=== PATIENT | female | born 1985 | race Caucasian/White ===

== ENCOUNTER 2016-09-28 21:07 | Emergency (ER) | payer OTHER ==
[2016-09-28 21:34] VITALS: TEMP 98.2; BMI 28.3
[2016-09-28] MEDS ORDERED: MAG HYDROX/AL HYDROX/SIMETH 30 ML UNIT-DOSE CUP PO ONE (23:06)
--- NOTE | 2016-09-28 23:06 | PDOC ---
History of Present Illness - General History Source: Patient Exam Limitations: No Limitations - History of Present Illness Initial Comments: 09/28/16 23:18 Patient is a 31 year old female with no pmhx who presents to the ED with epigastric pain for 7 hours. She denies any radiation of the pain. Patient states that she took 400 mg of advil and tums which made the pain that has progressively worsened so she took omeprazole with no relief. She reports intermittent nausea, but denies any vomiting or diarrhea. She reports generalized weakness. LMP: currently PSH: cholecystectomy, tonsillectomy, C section SH: non smoker, no alcohol or drug use. ALL: NKA <Shakira De Paz - Last Filed: 09/28/16 23:18> <Mariann Smith - Last Filed: 09/29/16 01:12> - General Chief Complaint: Pain Stated Complaint: STOMACH PAIN,WEAKNESS Time Seen by Provider: 09/28/16 22:23 Past History <Shakira De Paz - Last Filed: 09/28/16 23:18> - Surgical History Cholecystectomy: Yes - Psycho/Social/Smoking Cessation Hx Anxiety: No Suicidal Ideation: No Smoking History: Never smoked Have you smoked in the past 12 months: No Information on smoking cessation initiated: No Hx Alcohol Use: No Drug/Substance Use Hx: No Substance Use Type: None <Mariann Smith - Last Filed: 09/29/16 01:12> - Past Medical History Allergies/Adverse Reactions: Allergies Allergy/AdvReac Type Severity Reaction Status Date / Time No Known Allergies Allergy Verified 09/28/16 21:34 Home Medications: Ambulatory Orders NK [No Known Home Medication] 09/28/16 Review of Systems - Review of Systems Able to Perform ROS?: Yes Comments:: 09/28/16 23:18 CONSTITUTIONAL: Present: generalized weakness Absent: fever, chills, diaphoresis, malaise, loss of appetite HEENT: Absent: rhinorrhea, nasal congestion, throat pain, throat swelling, difficulty swallowing, mouth swelling, ear pain, eye pain, visual Changes CARDIOVASCULAR: Absent: chest pain, syncope, palpitations, irregular heart rate, lightheadedness , peripheral edema RESPIRATORY: Absent: cough, shortness of breath, dyspnea with exertion, orthopnea, wheezing, stridor, hemoptysis GASTROINTESTINAL: Present: abdominal pain, nausea Absent:abdominal distension, vomiting, diarrhea, constipation, melena, hematochezia GENITOURINARY: Absent: dysuria, frequency, urgency, hesitancy, hematuria, flank pain, genital pain MUSCULOSKELETAL: Absent: myalgia, arthralgia, joint swelling SKIN: Absent: rash, itching, pallor HEMATOLOGIC/IMMUNOLOGIC: Absent: easy bleeding, easy bruising, lymphadenopathy, frequent infections ENDOCRINE: Absent: unexplained weight gain, unexplained weight loss, heat intolerance, cold intolerance NEUROLOGIC: Absent: headache, focal weakness or paresthesias, dizziness, unsteady gait, seizure, mental status changes, bladder or bowel incontinence PSYCHIATRIC: Absent: anxiety, depression, suicidal or homicidal ideation, hallucinations. <Shakira De Paz - Last Filed: 09/28/16 23:18> *Physical Exam - Vital Signs Last Vital Signs Temp Pulse Resp BP Pulse Ox 98.2 F 76 18 115/71 100 09/28/16 21:31 09/28/16 21:31 09/28/16 21:31 09/28/16 21:31 09/28/16 21:31 - Physical Exam Comments: 09/28/16 23:19 GENERAL: Well developed, well nourished. Awake and alert. No acute distress. HEENT: Normocephalic, atraumatic. PERRLA, EOMI. No conjunctival pallor. Sclera are non- icteric. Moist mucous membranes. Oropharynx is clear. NECK: Supple. Full ROM. No JVD. Carotid pulses 2+ and symmetric, without bruits. No thyromegaly. No lymphadenopathy. CARDIOVASCULAR: Regular rate and rhythm. No murmurs, rubs, or gallops. Distal pulses are 2+ and symmetric. PULMONARY: No evidence of respiratory distress. Lungs clear to auscultation bilaterally. No wheezing, rales or rhonchi. ABDOMINAL: +Epigastric discomfort. Soft.bNon-distended. No rebound or guarding. No organomegaly. Normoactive bowel sounds. MUSCULOSKELETAL Normal range of motion at all joints. No bony deformities or tenderness. No CVA tenderness. EXTREMITIES: No cyanosis. No clubbing. No edema. No calf tenderness. SKIN: Warm and dry. Normal capillary refill. No rashes. No jaundice. NEUROLOGICAL: Alert, awake, appropriate. Cranial nerves 2-12 intact. No deficits to light touch and temperature in face, upper extremities and lower extremities. No motor deficits in the in face, upper extremities and lower extremities. Normoreflexic in the upper and lower extremities. Normal speech. PSYCHIATRIC: Cooperative. Good eye contact. Appropriate mood and affect. <Shakira De Paz - Last Filed: 09/28/16 23:18> - Vital Signs Last Vital Signs Temp Pulse Resp BP Pulse Ox 98.2 F 76 18 115/71 100 09/28/16 21:31 09/28/16 21:31 09/28/16 21:31 09/28/16 21:31 09/28/16 21:31 <Mariann Smith - Last Filed: 09/29/16 01:12> ED Treatment Course - LABORATORY CBC & Chemistry Diagram: 09/28/16 23:22 09/28/16 23:22 <Mariann Smith - Last Filed: 09/29/16 01:12> Medical Decision Making - Medical Decision Making 09/29/16 01:06 31-year-old female has stayed away since this afternoon's started to have severe epigastric pain. She has some with nausea but did not vomit. She has had a cholecystectomy and in the past. On physical exam she had some minor epigastric discomfort, but her abdomen was soft. There was no rebound, guarding or tenderness. She definitely did not have any right lower quadrant pain. Patient received antibiotics, fluids and given antacids and her symptoms resolved In reviewing her labs and was found. She did have a leukocytosis and 80% neutrophils. Patient 's abdomen was reassessed and it was still very soft with no focal abdominal pain. Patient requests to go home. I discussed with her CBC and that she had a WBC of 14,000. She may have a very atypical presentation of a very early appendicitis and this was discussed with her. She was told to return to the emergency department in the next 24 hours if her symptoms recur to have further eval and ct scan <Mariann Smith - Last Filed: 09/29/16 01:12> *DC/Admit/Observation/Transfer - Attestations Scribe Attestion: 09/28/16 23:19 Documentation prepared by MARBELLA Haro, acting as medical officer for Mariann Smith MD. <Shakira De Paz - Last Filed: 09/28/16 23:18> <Mariann Smith - Last Filed: 09/29/16 01:12> Diagnosis at time of Disposition: Epigastric pain - Discharge Dispostion Disposition: HOME Condition at time of disposition: Stable - Referrals Referrals: Charles Boyd [Primary Care Provider] - - Patient Instructions Printed Discharge Instructions: DI for Epigastric Pain Additional Instructions: If you have any further abdominal pain or nausea or vomiting, please return to the emergency department for a CT SCAN to rule out appendicitis
[2016-09-28] MEDS ORDERED: FAMOTIDINE 20 MG/50 ML IVPB 50 ML IVPB ONE ×2 (23:08→23:16)
[2016-09-28] MEDS ORDERED: ONDANSETRON 4 MG/2 ML VIAL IVPUSH ONE (23:09)
[2016-09-28] MEDS ORDERED: MAG HYDROX/AL HYDROX/SIMETH 30 ML UNIT-DOSE CUP ONE (23:15)
[2016-09-28] MEDS ORDERED: ONDANSETRON 4 MG/2 ML VIAL ONE (23:17)
[2016-09-28 23:40] LABS: BASOPHIL 0.6 % (0-2.0); MCH 28.7 pg (25.7-33.7); NEUTROPHILS 89.9 % (42.8-82.8); PLATELET COUNT 201 K/MM3 (134-434); RDW 13.7 % (11.6-15.6); WHITE BLOOD COUNT 14.2 K/mm3 (4.0-10.0)
[2016-09-29 00:03] LABS: ALBUMIN 4.2 g/dl (3.4-5.0); ANION GAP 9 (8-16); CALCIUM 9.5 mg/dL (8.5-10.1); CO2 27 mmol/L (21-32); CREATININE 0.6 mg/dL (0.55-1.02); GLUCOSE,RANDOM 124 mg/dL (74-106); SGOT/AST 18 U/L (15-37); SGPT/ALT 20 U/L (12-78); TOT PROT 8.1 g/dl (6.4-8.2)
[2016-09-29 00:04] LABS: ALK PHOS 81 U/L (45-117)
[2016-09-29 01:31] VITALS: BP 110/68; PULSE 68
== END 2016-09-29 01:30 | disposition home or self-care (01) ==
LOC: JER 21:07
PROC: 3E033GC Introduction of Other Therapeutic Substance into Peripheral Vein, Percutaneous Approach (ICD-10-PCS; principal; 2016-09-28)
DX: R10.13 Epigastric pain (principal)
CPT/HCPCS: 36415; 80053; 83690; 84703; 85025; 96365; 96375; 99282-25

== ENCOUNTER 2016-10-01 14:06 | Emergency (ER) | payer OTHER ==
[2016-10-01 14:14] VITALS: BP 117/78; PULSE 84; TEMP 97.9; BMI 28.3
[2016-10-01 14:48] LABS: URINE APPEARANCE CLEAR; URINE BILIRUBIN NEGATIVE (NEGATIVE); URINE COLOR YELLOW; URINE GLUCOSE (UA) NEGATIVE (NEGATIVE); URINE KETONE TRACE (NEGATIVE); URINE NITRITE NEGATIVE (NEGATIVE); URINE UROBILINOGEN NEGATIVE mg/dL (0.2-1.0)
--- NOTE | 2016-10-01 15:04 | PDOC ---
History of Present Illness - General Chief Complaint: Pain Stated Complaint: ABD PAIN Time Seen by Provider: 10/01/16 14:18 - History of Present Illness Initial Comments: 10/01/16 14:57 Ms. Hernandez is a 31 yo F with h/o cholycystectomy who presents with abdominal pain. Pt. reports epigastric pain beginning 5 days ago and that subsided and has recurred yesterday. Pain is sharp, and localized. Endorses intrascapular pain, decreased appetite, mild SOB, and nausea. Denies vomiting, fevers/chills, wt.changes, constipation/diarrhea, blood in stool, chest pain, urinary complaints. Reports Ranitidine use with no relief of symptoms. Denies alcohol consumption and maintains adequate fluid hydration. Timing/Duration: unsure Past History - Past Medical History Allergies/Adverse Reactions: Allergies Allergy/AdvReac Type Severity Reaction Status Date / Time No Known Allergies Allergy Verified 10/01/16 14:11 Home Medications: Ambulatory Orders Dicyclomine HCl [Bentyl] 10 mg PO BID PRN #10 capsule 10/01/16 Famotidine [Pepcid -] 40 mg PO DAILY #30 tablet 10/01/16 Other medical history: none - Surgical History Cholecystectomy: Yes - Psycho/Social/Smoking Cessation Hx Anxiety: No Suicidal Ideation: No Smoking History: Never smoked Have you smoked in the past 12 months: No Information on smoking cessation initiated: No Hx Alcohol Use: No Drug/Substance Use Hx: No Substance Use Type: None Review of Systems - Review of Systems Comments:: 10/01/16 15:04 GENERAL/CONSTITUTIONAL: No fever or chills. No weakness. HEAD, EYES, EARS, NOSE AND THROAT: No change in vision. No ear pain or discharge. No sore throat. CARDIOVASCULAR: No chest pain or shortness of breath RESPIRATORY: No cough, wheezing, or hemoptysis. GASTROINTESTINAL: +abdominal pain and nausea, No vomiting, diarrhea or constipation. GENITOURINARY: No dysuria, frequency, or change in urination. MUSCULOSKELETAL: No joint or muscle swelling or pain. No neck or back pain. SKIN: No rash NEUROLOGIC: No headache, vertigo, loss of consciousness, or change in strength/ sensation. ENDOCRINE: No increased thirst. No abnormal weight change HEMATOLOGIC/LYMPHATIC: No anemia, easy bleeding, or history of blood clots. ALLERGIC/IMMUNOLOGIC: No hives or skin allergy. *Physical Exam - Vital Signs Last Vital Signs Temp Pulse Resp BP Pulse Ox 97.9 F 84 18 117/78 100 10/01/16 14:11 10/01/16 14:11 10/01/16 14:11 10/01/16 14:11 10/01/16 14:11 - Physical Exam Comments: 10/01/16 15:05 GENERAL: Awake, alert, and fully oriented, in no acute distress HEAD: No signs of trauma, normocephalic, atraumatic EYES: PERRLA, EOMI, sclera anicteric, conjunctiva clear ENT: Auricles normal inspection, hearing grossly normal, nares patent, oropharynx clear without exudates. Moist mucosa NECK: Normal ROM, supple, no lymphadenopathy, JVD, or masses LUNGS: No distress, speaks full sentences, clear to auscultation bilaterally HEART: Regular rate and rhythm, normal S1 and S2, no murmurs, rubs or gallops, peripheral pulses normal and equal bilaterally. ABDOMEN: Epigastric tenderness to palpation. Soft, normoactive bowel sounds. No guarding, no rebound. No masses. Absent hepatosplenomegaly, Absent rigidity and rebound tenderness. EXTREMITIES: Normal inspection, Normal range of motion, no edema. No clubbing or cyanosis. NEUROLOGICAL: Cranial nerves II through XII grossly intact. Normal speech, normal gait, no focal sensorimotor deficits SKIN: Warm, Dry, normal turgor, no rashes or lesions noted. ED Treatment Course - LABORATORY CBC & Chemistry Diagram: 10/01/16 15:00 10/01/16 15:00 - ADDITIONAL ORDERS Additional order review: Laboratory Results 10/01/16 14:27 Urine HCG, Qual Negative Medical Decision Making - Medical Decision Making 10/01/16 15:08 Ms. Hernandez is a 31 yo F with h/o cholycystectomy, and GERD who presents with abdominal pain. There is low suspicion for cholethiasis or gallbladder pathology d/t cholycystectomy ( 2012 ). Physical exam does not reveal acute abdomen or peritoneal signs. It is unlikely she has mesenteric ischemia. She denies urinary complaints. Low clinical suspicion of pyelonephritis, or cholethiasis. Pt. denies flank and suprapubic pain. Has no CVA tenderness and is hemodynamically stable. Pain most likely 2/2 to PUD vs. acute pancreatitis. ED Course: CBC,CMP, Lipase UA BHCG Abdominal CT 10/01/16 16:35 CBC, CMP, Lipase unremarkable 10/01/16 18:15 Bismuth Subsalicylate Mag hydrox/ Al hydrox 10/04/16 15:[address] abdomen *DC/Admit/Observation/Transfer Diagnosis at time of Disposition: Dyspepsia Epigastric abdominal tenderness Qualifiers: Presence of rebound: absent Qualified Code(s): R10.816 - Epigastric abdominal tenderness - Discharge Dispostion Disposition: HOME Condition at time of disposition: Improved - Prescriptions Prescriptions: Dicyclomine HCl [Bentyl] 10 mg PO BID PRN #10 capsule PRN Reason: abodminal pain Famotidine [Pepcid -] 40 mg PO DAILY #30 tablet - Referrals Referrals: Charles Boyd [Primary Care Provider] - - Patient Instructions Printed Discharge Instructions: DI for Epigastric Pain Additional Instructions: Please return to the ER if you experience worsening symptoms including worsening pain, vomiting, bloody vomit, or blood in your stools. Please follow up with your Primary care provider to discuss your ER visit. - Attestations Physician Attestion: 10/01/16 16:44 I, Dr. Beka Stevens, attest that this document has been prepared under my direction and personally reviewed by me in its entirety. I further attest, that it accurately reflects all work, treatment, procedures and medical decision -making performed by me.
[2016-10-01 15:16] LABS: URINE BLOOD 3+ (NEGATIVE); URINE LEUK ESTERASE TRACE (NEGATIVE); URINE PROTEIN 1+ (NEGATIVE)
[2016-10-01 15:21] LABS: BASOPHIL 0.6 % (0-2.0); EOSINOPHIL 0.7 % (0-4.5); MCH 28.6 pg (25.7-33.7); MCHC 32.9 g/dl (32.0-36.0); MEAN CELL VOLUME 86.9 fl (80-96); MEAN PLT VOLUME 8.8 fl (7.5-11.1); NEUTROPHILS 71.2 % (42.8-82.8); PLATELET COUNT 198 K/MM3 (134-434); RDW 13.2 % (11.6-15.6); WHITE BLOOD COUNT 9.5 K/mm3 (4.0-10.0)
[2016-10-01 15:49] LABS: ALK PHOS 81 U/L (45-117); ANION GAP 5 (8-16); BILIRUBIN,TOTAL 0.9 mg/dL (0.2-1.0); CALCIUM 9.9 mg/dL (8.5-10.1); CO2 29 mmol/L (21-32); CREATININE 0.7 mg/dL (0.55-1.02); GLUCOSE,RANDOM 85 mg/dL (74-106); SGPT/ALT 18 U/L (12-78); TOT PROT 7.5 g/dl (6.4-8.2)
[2016-10-01 16:02] LABS: SGOT/AST 20 U/L (15-37)
[2016-10-01] MEDS ORDERED: BISMUTH SUBSALICYLATE 262 MG/15 ML BTL PO ONE (17:28)
[2016-10-01] MEDS ORDERED: MAG HYDROX/AL HYDROX/SIMETH 30 ML UNIT-DOSE CUP PO ONE (17:28)
--- NOTE | 2016-10-01 19:52 | PDOC ---
*Physical Exam - Vital Signs Last Vital Signs Temp Pulse Resp BP Pulse Ox 97.9 F 84 18 117/78 100 10/01/16 14:11 10/01/16 14:11 10/01/16 14:11 10/01/16 14:11 10/01/16 14:11 - Physical Exam Comments: 10/01/16 22:12 General Appearance: Nourished. No Apparent Distress HEENT: No Pharyngeal Erythema, Tonsillar Exudate, Tonsillar Erythema Respiratory/Chest: Lungs Clear, Normal Breath Sounds. No Crackles, Rales, Rhonchi, Wheezing Cardiovascular: Regular Rhythm, Regular Rate. No Murmur, Gallop/S3, Gallop/S4 Gastrointestinal/Abdominal: Normal Bowel Sounds, Soft. No Guarding, Rebound, Tenderness Extremity: Normal Capillary Refill Integumentary: Normal Color, Dry, Warm Neurologic: Fully Oriented, Alert, Normal Mood/Affect, Normal Response ED Treatment Course - LABORATORY CBC & Chemistry Diagram: 10/01/16 15:00 10/01/16 15:00 - ADDITIONAL ORDERS Additional order review: Laboratory Results 10/01/16 10/01/16 15:00 14:27 Sodium 137 Potassium 4.6 Chloride 103 Carbon Dioxide 29 Anion Gap 5 L BUN 11 D Creatinine 0.7 Creat Clearance w eGFR > 60 Random Glucose 85 D Calcium 9.9 Total Bilirubin 0.9 AST 20 ALT 18 Alkaline Phosphatase 81 Total Protein 7.5 Albumin 4.0 Lipase 104 Urine Color Yellow Urine Appearance Clear Urine pH 5.0 Ur Specific [place] 1.020 Urine Protein 1+ H Urine Glucose (UA) Negative Urine Ketones Trace H Urine Blood 3+ H Urine Nitrite Negative Urine Bilirubin Negative Urine Urobilinogen Negative Ur Leukocyte Esterase Trace H Urine HCG, Qual Negative 10/01/16 15:00 RBC 4.75 MCV 86.9 MCHC 32.9 RDW 13.2 MPV 8.8 Neutrophils % 71.2 D Lymphocytes % 18.5 D Monocytes % 9.0 D Eosinophils % 0.7 D Basophils % 0.6 - Medications Given in the ED: ED Medications Discontinued Medications Generic Name Dose Route Start Last Admin Trade Name Freq PRN Reason Stop Dose Admin Al Hydroxide/Mg Hydroxide 30 ml 10/01/16 17:28 10/01/16 18:06 Mylanta Oral Suspension - PO 10/01/16 17:29 30 ml ONCE ONE Administration Bismuth Subsalicylate 30 ml 10/01/16 17:28 10/01/16 18:06 Pepto-Bismol Liquid - PO 10/01/16 17:29 30 ml ONCE ONE Administration Progress Note - Progress Note Progress Note: Patient is a 31 year old female who presents with epigastric abdominal pain. Patient was seen previously in the ED for similar complaints recently and represents for a CT abdomen to rule out appendicitis. Work up has been negative thus far. If CT is negative, patient can be discharged home with GI follow up. Medical Decision Making - Medical Decision Making 10/01/16 22:[address] scan is negative. We discussed the results with the patient and feel comfortable discharging the patient home with follow up and she is agreeable to the plan. *DC/Admit/Observation/Transfer Diagnosis at time of Disposition: Dyspepsia Epigastric abdominal tenderness Qualifiers: Presence of rebound: absent Qualified Code(s): R10.816 - Epigastric abdominal tenderness - Discharge Dispostion Disposition: HOME Condition at time of disposition: Improved - Prescriptions Prescriptions: Dicyclomine HCl [Bentyl] 10 mg PO BID PRN #10 capsule PRN Reason: abodminal pain Famotidine [Pepcid -] 40 mg PO DAILY #30 tablet - Referrals Referrals: Charles Boyd [Primary Care Provider] - - Patient Instructions Printed Discharge Instructions: DI for Epigastric Pain Additional Instructions: Please return to the ER if you experience worsening symptoms including worsening pain, vomiting, bloody vomit, or blood in your stools. Please follow up with your Primary care provider to discuss your ER visit. - Post Discharge Activity - Attestations Physician Attestion: 10/01/16 20:06 I, Dr. Rolando Reyna, attest that this document has been prepared under my direction and personally reviewed by me in its entirety. I further attest, that it accurately reflects all work, treatment, procedures and medical decision -making performed by me.
--- NOTE | 2016-10-01 20:54 | PDOC ---
Attending Attestation - Resident Resident Name: Beka Stevens - ED Attending Attestation I have performed the following: I have examined & evaluated the patient, The case was reviewed & discussed with the resident, I agree w/resident's findings & plan, Exceptions are as noted - HPI HPI: 10/01/16 20:54 This is a 31 yo F h/o cholycystectomy who presents with epigastric abdominal pain which began 5 days ago. Pain is sharp, decreased appetite, and nausea. Denies vomiting, fevers/chills, wt.changes, constipation/diarrhea, blood in stool, chest pain, urinary complaints. took Zantac, no relief - Physicial Exam PE: 10/01/16 20:56 Epigastric tenderness to palpation No guarding No rebound - Medical Decision Making 10/01/16 20:57 will do labs Will do CT Will re assess 10/01/16 21:01 Laboratory Tests 10/01/16 10/01/16 10/01/16 14:27 15:00 15:00 WBC 9.5 D Hgb 13.6 Hct 41.3 Plt Count 198 BUN 11 D Creatinine 0.7 Urine Ketones Trace H Urine Blood 3+ H Urine HCG, Qual Negative 10/01/16 21:55 CT: No diverticulitis, No appendicitis, small umbilical hernia, hepatic steatosis, IUD in place Pt can be discharged on pepcid and bentyl Will discharge to home I discussed the physical exam findings, ancillary test results and final diagnoses with the patient. I answered all of the patient's questions. The patient was satisfied with the care received and felt comfortable with the discharge plan and treatment plan. The patient will call their primary care physician within 24 hours to arrange follow-up and will return to the Emergency Department with any new, persistent or worsening symptoms. 10/01/16 22:02
== END 2016-10-01 22:04 | disposition home or self-care (01) ==
LOC: JER 14:06
DX: R10.13 Epigastric pain (principal); K21.9 Gastro-esophageal reflux disease without esophagitis
CPT/HCPCS: 36415; 74177-TC; 80053; 81003; 81015; 83690; 84703; 85025; 99282-25